=== PATIENT | female | born 1970 | race Native Hawaiian/Other Pacific Islander ===

== ENCOUNTER 2021-04-18 10:45 | Outpatient (CLI) | payer BC | END 2021-04-18 13:00 | disposition home or self-care (01) | LOC: MRI 10:45 | PROVIDERS: ATTEND Internal Medicine | DX: M51.16 Intervertebral disc disorders with radiculopathy, lumbar region (principal) ==

== ENCOUNTER 2021-05-25 14:36 | Outpatient (CLI) | payer BC | END 2021-05-25 23:41 | disposition home or self-care (01) | LOC: MAMMO 14:36 | PROVIDERS: ATTEND Internal Medicine | DX: Z13.820 Encounter for screening for osteoporosis (principal) ==